=== PATIENT | male | born 1940 | race Caucasian/White ===

== ENCOUNTER 2019-04-23 20:56 | Emergency (ER) | payer OTHER ==
[~2019-04-23] VITALS: Ht 177.8 cm; Wt 93.0 kg
[2019-04-23 22:47] LABS: ABSOLUTE NEUTROPHILS 6.5 thou/uL (1.4-8.2); BASOPHILS 0.6 % (0.0-2.0); EOSINOPHILS 3.8 % (0.0-3.0); HEMATOCRIT 42.2 % (42.0-52.0); MCH 29.7 pg (26.0-34.0); MCHC 33.1 g/dL (28.0-37.0); MCV 89.5 fL (80.0-100.0); MONOCYTES 9.3 % (1.0-8.0); PLATELET COUNT 239 thou/uL (150-400); POLYS 70.3 % (36.0-66.0); RBC 4.71 mil/uL (4.50-6.00); RDW 13.4 % (10.5-14.5); WBC 9.3 thou/uL (4.0-11.0)
[2019-04-23 22:55] LABS: ANION GAP 10 mmol/L (7-16); BUN 18 mg/dL (7-18); CALCIUM 8.7 mg/dL (8.5-10.1); CHLORIDE 101 mmol/L (98-107); CO2 26 mmol/L (21-32); CREATININE 1.1 mg/dL (0.7-1.3); GLUCOSE 110 mg/dL (74-106); POTASSIUM 3.8 mmol/L (3.5-5.1); SODIUM 137 mmol/L (136-145)
[2019-04-23 23:06] LABS: ALBUMIN 3.7 g/dL (3.4-5.0); MAGNESIUM 1.9 mg/dL (1.8-2.4); SGOT 23 U/L (15-37); SGPT 28 U/L (30-65); TOTAL BILIRUBIN 0.5 mg/dL (<0.1-1.0); TOTAL PROTEIN 7.4 g/dL (6.4-8.2); TROPONIN-I <0.06 ng/mL (<0.06)
[2019-04-23] MEDS ORDERED: VALIUM2 MG PO (23:14)
[2019-04-24 02:13] VITALS: BP 132/80
--- NOTE | 2019-04-25 17:14 | EKG ---
[address] [place] [address] ELECTROCARDIOGRAM REPORT Name: JUAN ANTONIO CHAIDEZ Room #: [facility]#: [id number] Admission: 04/23/19 Attend Phys: Discharge: 04/24/19 Date of : 44 Report #: [id number] THIS REPORT FOR: //name// [facility] ED Test Date: 2019-04-23 Test Time: 22:11:21 Pat Name: JUAN ANTONIO VITALWALTERJOSE ELIAS Department: Room: Gender: M Bulldozer/Loader/Compactor/Scraper: IRA : 1940 Requested By: Princess Zaragoza Order Number: [id number] MD: Kaushik Cagle Measurements Intervals [place] Rate: 63 P: 55 OR: 71 QRS: -53 QRSD: 121 T: 24 QT: 447 QTc: 458 Interpretive Statements Sinus rhythm Short OR interval Left atrial enlargement Nonspecific IVCD with LAD No previous ECG available for comparison Electronically Signed On 04-25-2019 17:13:27 [employer] by Kaushik Cagle [email or web address] <ELECTRONICALLY SIGNED> By: Kaushik Cagle MD 04/25/19 1713 10 10 Kaushik Cagle MD /HARRIETT
== END 2019-04-24 02:13 | disposition home or self-care (01) ==
LOC: ER 20:56
PROVIDERS: Emergency Medicine
DX: R42 Dizziness and giddiness (principal); I10 Essential (primary) hypertension; E78.5 Hyperlipidemia, unspecified; K21.9 Gastro-esophageal reflux disease without esophagitis; M19.90 Unspecified osteoarthritis, unspecified site

== ENCOUNTER → 2021-05-31 | Outpatient (CLI) | payer OTHER ==
[~2021-05-31] MED LIST: VALIUM2 MG PO
== END ==
LOC: CAT 05-27 11:22
PROVIDERS: ATTEND Family Medicine
DX: Z13.6 Encounter for screening for cardiovascular disorders (principal); I25.10 Atherosclerotic heart disease of native coronary artery without angina pectoris; E78.00 Pure hypercholesterolemia, unspecified